=== PATIENT | female | born 1995 | race Caucasian/White ===

== ENCOUNTER 2024-04-11 14:34 | Emergency (ER) | payer SELFPAY ==
[2024-04-11] VITALS (7 sets, daily range): BP systolic 136–159; BP diastolic 78–106; PULSE 74–114; RESP 15–25; TEMP 36.3; O2SAT 92–98
--- NOTE | 2024-04-11 14:30 | RT.EKG_ITS ---
APPROVED REPORT Exam: Resting ECG Reason for Exam: chest pain Patient Location: E HR:98 bpm ECG Measurements Heart Rate 98 AXIS OK 123 P 85 QRSd 65 QRS 64 QT 332 T 64 QTc 424 Conclusion Sinus rhythm 98 normal axis no stemi
[2024-04-11] MEDS: Ketorolac 10 MG TAB PO (14:56)
--- NOTE | 2024-04-11 15:08 | ED.GENADUL_ITS ---
Discharge Plan Disposition Patient Disposition: Home Condition: Stable Discharge Details Clinical Impression: Pleurisy Primary Care Provider: Saadia Zavala ED Provider: Sanju Lucio Home Meds and New Rx's Prescriptions: New meloxicam 15 mg tablet 15 mg PO DAILY Qty: 20 0RF Rx Instructions: take with food Discharge Instructions Instructions: Pleuritic Chest Pain (DC) Additional Instructions: * Use the inhaler with spacer 2 puffs every 4-6 hours * Start the medicine prescribed. Do not take this with other NSAIDs, you can take this with Tylenol for pain. Stand Alone Forms: Work Release HPI General Date/Time Provider Initiated Documentation: 04/11/24 14:51 . Limitations to Documentation: no limitations . Information obtained by: patient . HPI Narrative: 28-year-old female without significant past medical history presents for evaluation of left-sided chest pain. She reports acute onset of left-sided pain that started just prior to arrival. She reports having a cough and then feeling a pop. The pain is localized just under her left breast and radiates around the left side. It hurts to move or to take a deep breath. She reports that she was treated for pneumonia last month and has been having some cough since then. She reports that her pneumonia symptoms are overall improved, but starting 3 days ago she developed some left-sided pain. She denies any fever. She states that she was seen at the emergency department last night at a different facility and was told that everything was fine. The severe pain did not start until today. Related Data Home Medications ?Medication ?Instructions ?Recorded ?Confirmed meloxicam 15 mg tablet 15 mg PO DAILY #20 tabs 04/11/24 Previous Rx's ?Medication ?Instructions ?Recorded meloxicam 15 mg tablet 15 mg PO DAILY #20 tabs 04/11/24 Allergies Allergy/AdvReac Type Severity Reaction Status Date / Time No Known Allergies Allergy Unverified 04/11/24 14:42 General Stated Complaint: Chest/Rib LA: 2 Exam Narrative Exam Narrative: Review of Systems: All systems reviewed & are unremarkable except as noted in HPI and below Well-developed, appears uncomfortable NCAT RRR, no murmur Unlabored respiratory effort, no hypoxia, speaking in full and complete sentences Coarse breath sounds with expiratory wheezing noted on the right lung adler Course Vital Signs Vital signs: Vital Signs Temperature 36.3 C L 04/11/24 14:38 Pulse 114 H 09/16/24 14:38 Respiratory Rate 20 04/11/24 14:38 Blood Pressure 159/106 H 04/11/24 14:38 Pulse Oximetry 97 04/11/24 14:38 Temperature 36.3 C L 04/11/24 14:38 Pulse 114 H 04/11/24 14:38 Respiratory Rate 20 04/11/24 14:38 Respiratory Effort Normal 04/11/24 14:43 Blood Pressure 159/106 H 04/11/24 14:38 Pulse Oximetry 97 04/11/24 14:38 Pain Level 8 04/11/24 14:38 Medical Decision Making Emergent evaluation of left-sided chest pain. The patient is an otherwise healthy patient without any significant cardiac risk factors. EKG reviewed and independently interpreted. Sinus [address] segment changes. 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 Blood pressure 138/78, heart rate of 83, SpO2 of 96. Given her recent pneumonia diagnosis, initial differential includes pleurisy, rib fracture, persistent infection. She does have some wheezing on exam and does have a history of former smoking. She is PERC negative. A chest x-ray was obtained to evaluate possible pulmonary etiology of symptoms. This was reviewed and independently interpreted, there is no pneumothorax, no acute rib fracture noted, no focal consolidation. Will treat with albuterol for bronchodilation as well as NSAIDs to help with pleurisy. At this time no additional workup indicated and the patient is discharged to follow-up with PCP as needed. Quality:SDOH Health Related Social Needs: No Data to Display PFSH All Active Problems (Updated 04/11/24 @ 15:44 by Sanju Lucio MD) Pleurisy (Acute) Social History Smoking/Tobacco Use Status: Former Tobacco Use Smoking risk assessment performed?: Yes Drug use: Never Substance use type: does not use Housing: house Do you feel safe at home: Yes Do you feel safe in your relationship?: Yes
--- NOTE | 2024-04-11 15:26 | DI.RAD_ITS ---
Exam(s) XR CHEST 2V PA LATERAL EXAM: XR CHEST 2V PA LATERAL CLINICAL HISTORY: chest pain. TECHNIQUE: 2D digital imaging was performed. COMPARISON: No exams were available for comparison FINDINGS: 2 views: Heart size is normal. The mediastinum is not widened. Lungs are clear. No infiltrates nor pleural effusions. IMPRESSION: No acute pulmonary findings. DATA REPOSITORY: RADIATION DOSE DELIVERED:
[2024-04-11] MEDS: Albuterol HFA 8 GM 60 PUFF INH IH (16:02)
[2024-04-11] MEDS: Inhaler, Assist Device 1 EACH MC (16:02)
== END 2024-04-11 16:26 | disposition home or self-care (01) ==
PROVIDERS: Emergency Provider Emergency Medicine; PCP Physician Assistant
DX: R09.1 Pleurisy (principal); Z87.891 Personal history of nicotine dependence
CPT/HCPCS: 93005; 99283; 71046; 93010